=== PATIENT | female | born 1985 | race Caucasian/White ===

== ENCOUNTER 2017-08-05 09:25 | Outpatient (CLI) ==
--- NOTE | 2017-08-05 10:33 | US ---
EXAM: Ultrasound thyroid. HISTORY: Hypothyroidism. COMPARISON: None available. TECHNIQUE: Churchill-scale and color Doppler images. FINDINGS: The right lobe of the thyroid measures 3.7 x 0.7 x 1 cm. There is homogeneous echogenicity without di screte nodule. The thyroid isthmus measures 0.2 cm. The left lobe of the thyroid measures 3.2 x 1 x 0.9 cm. There is homogeneous echogenicity without di screte nodule. IMPRESSION: Normal thyroid ultrasound.
== END 2017-08-05 09:26 | disposition home or self-care (01) ==
LOC: RAD 09:25
PROVIDERS: ATTEND Nurse Practitioner Family
DX: E03.9 Hypothyroidism, unspecified (principal)